=== PATIENT | male | born 1950 | race Caucasian/White ===

== ENCOUNTER → 2019-09-28 12:59 | Outpatient (BNVA) | payer MEDICARE, SELFPAY | PROVIDERS: PCP Family Medicine; Referring Provider Family Medicine; Visit Provider Nurse Practitioner Gerontology | DX: N40.1 Benign prostatic hyperplasia with lower urinary tract symptoms (principal); R39.15 Urgency of urination; R35.1 Nocturia; E11.22 Type 2 diabetes mellitus with diabetic chronic kidney disease; N18.2 Chronic kidney disease, stage 2 (mild); I12.9 Hypertensive chronic kidney disease with stage 1 through stage 4 chronic kidney disease, or unspecified chronic kidney disease | CPT/HCPCS: 51798; 81003; 99204 ==

== ENCOUNTER → 2019-12-30 15:05 | Outpatient (BNVA) | payer MEDICARE, SELFPAY | PROVIDERS: PCP Family Medicine; Referring Provider Family Medicine; Visit Provider Nurse Practitioner Gerontology | DX: N40.1 Benign prostatic hyperplasia with lower urinary tract symptoms (principal); R39.15 Urgency of urination; R35.0 Frequency of micturition | CPT/HCPCS: 99213 ==

== ENCOUNTER → 2021-01-02 14:37 | Outpatient (BNVA) | payer MEDICARE, SELFPAY | PROVIDERS: PCP Family Medicine; Referring Provider Family Medicine; Visit Provider Nurse Practitioner Gerontology | DX: N40.1 Benign prostatic hyperplasia with lower urinary tract symptoms (principal) | CPT/HCPCS: 81003; 99213 ==

== ENCOUNTER → 2022-04-05 14:23 | Outpatient (BNVA) | payer MEDICARE, SELFPAY | PROVIDERS: PCP Family Medicine; Referring Provider Family Medicine; Visit Provider Nurse Practitioner Gerontology | DX: R33.8 Other retention of urine (principal); N40.1 Benign prostatic hyperplasia with lower urinary tract symptoms | CPT/HCPCS: 51798; 99214 ==

== ENCOUNTER → 2023-04-11 10:22 | Outpatient (BNVA) | payer MEDICARE, SELFPAY | PROVIDERS: PCP Family Medicine; Visit Provider Nurse Practitioner Gerontology | DX: N40.1 Benign prostatic hyperplasia with lower urinary tract symptoms (principal); R39.89 Other symptoms and signs involving the genitourinary system | CPT/HCPCS: 51798; 81003; 99213 ==

== ENCOUNTER → 2024-03-11 11:28 | Outpatient (BNVA) | payer MEDICARE, SELFPAY | PROVIDERS: PCP Family Medicine; Visit Provider Nurse Practitioner Gerontology | DX: N40.1 Benign prostatic hyperplasia with lower urinary tract symptoms (principal); N40.0 Benign prostatic hyperplasia without lower urinary tract symptoms; B37.2 Candidiasis of skin and nail | CPT/HCPCS: 99214 ==

== ENCOUNTER → 2024-06-16 09:03 | Outpatient (BNVA) | payer MEDICARE, SELFPAY | PROVIDERS: PCP Family Medicine; Referring Provider Family Medicine; Visit Provider Nurse Practitioner Gerontology | DX: N40.1 Benign prostatic hyperplasia with lower urinary tract symptoms (principal); R33.8 Other retention of urine; R30.0 Dysuria | CPT/HCPCS: 51798; 81003; 99214 ==

== ENCOUNTER 2024-06-16 11:21 | Outpatient (REF) | payer MEDICARE, SELFPAY | END 2024-06-16 11:22 | disposition home or self-care (01) | LOC: LBN 11:21 | PROVIDERS: PCP Family Medicine; Visit Provider Nurse Practitioner Gerontology | DX: N40.1 Benign prostatic hyperplasia with lower urinary tract symptoms (principal) | CPT/HCPCS: 87077; 87086; 87186 ==

== ENCOUNTER → 2024-06-16 14:26 | Outpatient (BNVA) | payer MEDICARE, SELFPAY | PROVIDERS: PCP Family Medicine; Referring Provider Family Medicine; Visit Provider Nurse Practitioner Adult Health | DX: R41.89 Other symptoms and signs involving cognitive functions and awareness (principal) | CPT/HCPCS: 51798; 81003; 99214; 99215 ==

== ENCOUNTER → 2024-06-30 14:07 | Outpatient (BNVA) | payer MEDICARE, SELFPAY | PROVIDERS: PCP Family Medicine; Referring Provider Family Medicine; Visit Provider Urology | DX: R30.0 Dysuria (principal); Z68.41 Body mass index [BMI] 40.0-44.9, adult; N48.83 Acquired buried penis | CPT/HCPCS: 81003; 99214 ==

== ENCOUNTER 2024-06-30 16:04 | Outpatient (REF) | payer MEDICARE, SELFPAY | END 2024-06-30 16:05 | disposition home or self-care (01) | LOC: LBN 16:04 | PROVIDERS: PCP Family Medicine; Visit Provider Urology | DX: R30.0 Dysuria (principal); Z68.41 Body mass index [BMI] 40.0-44.9, adult; N48.83 Acquired buried penis | CPT/HCPCS: 87086 ==

== ENCOUNTER 2024-07-03 11:08 | Outpatient (CLI) | payer MEDICARE, SELFPAY ==
--- NOTE | 2024-07-03 11:00 | RT.EKG_ITS ---
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
== END 2024-07-03 11:09 | disposition home or self-care (01) ==
LOC: DI.CARD 11:11
PROVIDERS: PCP Family Medicine; Referring Provider Family Medicine; Visit Provider Internal Medicine Cardiovascular Disease
DX: R00.0 Tachycardia, unspecified (principal); I21.09 ST elevation (STEMI) myocardial infarction involving other coronary artery of anterior wall; I25.10 Atherosclerotic heart disease of native coronary artery without angina pectoris; R09.89 Other specified symptoms and signs involving the circulatory and respiratory systems; I10 Essential (primary) hypertension
CPT/HCPCS: 93010

== ENCOUNTER → 2024-07-03 11:08 | Outpatient (BNVA) | payer MEDICARE, SELFPAY | PROVIDERS: PCP Family Medicine; Referring Provider Family Medicine; Visit Provider Internal Medicine Cardiovascular Disease | DX: R09.89 Other specified symptoms and signs involving the circulatory and respiratory systems (principal); I25.10 Atherosclerotic heart disease of native coronary artery without angina pectoris; R94.31 Abnormal electrocardiogram [ECG] [EKG]; I10 Essential (primary) hypertension | CPT/HCPCS: 93005; 99214 ==

== ENCOUNTER → 2024-07-20 13:48 | Outpatient (BNVA) | payer MEDICARE, SELFPAY | PROVIDERS: PCP Family Medicine; Referring Provider Family Medicine; Visit Provider Urology | DX: N48.83 Acquired buried penis (principal) | CPT/HCPCS: 99214 ==

== ENCOUNTER → 2024-09-02 10:38 | Outpatient (BNVA) | payer MEDICARE, SELFPAY | PROVIDERS: PCP Family Medicine; Referring Provider Family Medicine; Visit Provider Nurse Practitioner Gerontology | DX: N40.1 Benign prostatic hyperplasia with lower urinary tract symptoms (principal); N48.83 Acquired buried penis | CPT/HCPCS: 99442 ==

== ENCOUNTER 2024-09-14 01:46 | Outpatient (CLI) | payer MEDICARE, SELFPAY ==
--- NOTE | 2024-09-14 13:45 | DI.US_ITS ---
APPROVED REPORT EXAM: Comprehensive 2D, Doppler, and color-flow Echocardiogram Other Information Technically limited study due to body habitus. Conclusion Borderline concentric left ventricular hypertrophy. Ejection fraction is 55 to 60%. Wall motion is normal Normal right ventricular size and function Both atria are normal in size Aortic valve is sclerotic and probably trileaflet. There is no hemodynamically significant aortic st enosis, no aortic regurgitation Mildly dilated ascending aorta 3.53 cm Wall motion Left Ventricle The left ventricle is normal size. The left ventricular systolic function is normal. The left ventric ular ejection fraction is within the normal range. Borderline concentric left ventricular hypertrophy . There is normal LV segmental wall motion. There is no ventricular septal defect visualized. LVEF is 55%. Right Ventricle The right ventricle is normal size. The right ventricular systolic function is normal. Atria The left atrium size is normal. The right atrium size is normal. The interatrial septum is intact wit h no evidence for an atrial septal defect. Aortic Valve The Aortic valve is sclerotic. Aortic valve is probably trileaflet. There is no aortic valvular steno sis. No aortic regurgitation is present. Mitral Valve The mitral valve is normal in structure. No evidence of mitral valve stenosis. Trace mitral regurgita tion. Tricuspid Valve The tricuspid valve is normal in structure. There is no tricuspid valve stenosis. Trace tricuspid reg urgitation. Unable to assess PA pressure. Pulmonic Valve The pulmonary valve is normal in structure. There is no pulmonic valvular stenosis. There is no pulmo gena valvular regurgitation. Great Vessels The aortic root is normal in size. The ascending aorta is mildly dilated. Aortic arch is normal in ca liber. IVC is normal in size and collapses >50% with inspiration. Pericardium There is no pericardial effusion. 2D Dimensions IVSD d PLAX 1.21 cm M: 0.6-1.2 Ao Root d 3.50 cm M: 3.1 - 3.7 LVPW d PLAX 1.17 cm M: 0.6 - 1.2 Ao Asc Diam d 3.53 cm M: 2.6 - 3.4 LVID d PLAX 4.99 cm M: 4.2 - 5.8 LVDs 3.57 cm M: 2.5 - 4.0 LV EF Teichholz 54.8 % FS 28.52 % LV EDV (Teich) 117.7 mL LV ESV (Teich) 53.2 mL Stroke Vol Index (Teich) 25.67 M-Mode TAPSE 1.56 cm (M/F) >1.7 Auto EF LV EDV A4C 154.7 mL LV EDV A2C 139.3 mL LV EDV BP LV ESV A4C 68.8 mL LV ESV A2C 63.2 mL LV ESV BP LVEF(%) A4C 55.5 % LVEF(%) A2C 54.6 % LVEF(%) BP LV SV A4C 85.9 ml LV SV A2C 76.1 ml LV SV BP LV CO A4C 6.0 L/min LV CO A2C 5.2 L/min LV CO BP HR A4C 70.01 BPM HR A2C 67.80 BPM LV EDV Index (BP) LA Volume LA Length A4C 5.5 cm LA Length A2C 4.6 cm LA Area A4C s 14.69 cm2 LA Area A2C s 15.55 cm2 LA Vol A4C A-L 33.24 mL LA Vol A2C A-L 44.56 mL LA Vol Biplane A-L 42.1 mL LA Vol/BSA A4C A-L LA Vol/BSA A2C A-L LA Vol/BSA BP A-L 16.8 mL/m2 LA Vol A4C MOD 32.6 mL LA Vol A2C MOD 40.0 mL LA Vol BP MOD 38.7 mL RA Volume RA Area A4C 7.8 cm2 RA ESV A4C (A-L) 12.3mL RA Vol/BSA A4C A-L RA Length A4C 4.2 cm RA ESV A4C (MOD) 10.7mL LV Diastology MV E' medial 0.076 (>0.07 m/s) MV E Vmax 0.76 (0.4-1.3 m/s) MV E/E' MED 9.95 (<14) MV A Vmax 0.75 (0.4-1.3 m/s) MV E' lateral 0.103 (>0.1 m/s) E/A Ratio 1.0 MV E/E' LAT 7.36 (<14) MV E' Average 0.089 m/s MV E/E'(average) 8.46 Aortic Valve AoV Vmax 1.84 m/s LVOT Vmax 1.05 m/s AoV Peak Grad 13.6 mmHg LVOT Peak Grad 4.4 mmHg AoV Area (Vmax) 1.74 cm2 LVOT VTI 0.231 m AoV VTI 0.390 m LVOT Mean Grad 2.9 mmHg AoV Mean Paul. 1.28 m/s LVOT SV 70.83 mL AoV Mean Grad 7.5 mmHg LVOT Diam s 1.95 cm AoV Area (VTI) 1.82 cm2 AV Regurg Peak Gr. 13.56 mmHg Velocity Ratio 0.57 Mitral Valve MV DT 299 (160-240 msec) MV Vmax TIPS 0.69 m/s MV Mean Grad 0.9 (<2mmHg) MV VTI 0.213 m Pulmonary Valve PV Vmax 1.15 (0.5-1.5 m/s) RVOT Vmax 0.62 m/s PV Peak Grad 5.3 mmHg RVOT Peak Gr. 1.5 mmHg PV Mean Paul 0.70 m/s RVOT VTI 0.143 m PV Mean Grad 2.3 mmHg RVOT Mean Gr. 0.9 mmHg
== END 2024-09-14 02:06 ==
LOC: DI 01:46
PROVIDERS: PCP Family Medicine; Visit Provider Internal Medicine Cardiovascular Disease
DX: I25.10 Atherosclerotic heart disease of native coronary artery without angina pectoris (principal)
CPT/HCPCS: 93306

== ENCOUNTER → 2024-09-15 13:46 | Outpatient (BNVA) | payer MEDICARE, SELFPAY | PROVIDERS: PCP Family Medicine; Referring Provider Family Medicine; Visit Provider Internal Medicine Cardiovascular Disease | DX: I25.10 Atherosclerotic heart disease of native coronary artery without angina pectoris (principal) | CPT/HCPCS: 99213 ==

== ENCOUNTER → 2024-11-10 15:06 | Outpatient (BNVA) | payer MEDICARE, SELFPAY | PROVIDERS: PCP Family Medicine; Referring Provider Family Medicine; Visit Provider Nurse Practitioner Adult Health | DX: G62.9 Polyneuropathy, unspecified (principal); R26.89 Other abnormalities of gait and mobility; S09.90XD Unspecified injury of head, subsequent encounter; W19.XXXD Unspecified fall, subsequent encounter; R41.89 Other symptoms and signs involving cognitive functions and awareness | CPT/HCPCS: 99214 ==

== ENCOUNTER → 2025-03-10 11:16 | Outpatient (BNVA) | payer MEDICARE, SELFPAY | PROVIDERS: PCP Family Medicine; Referring Provider Family Medicine; Visit Provider Nurse Practitioner Gerontology | DX: N40.1 Benign prostatic hyperplasia with lower urinary tract symptoms (principal); N48.83 Acquired buried penis; E11.21 Type 2 diabetes mellitus with diabetic nephropathy | CPT/HCPCS: 99214 ==

== ENCOUNTER 2025-07-07 13:49 | Outpatient (CLI) | payer MEDICARE, SELFPAY ==
[2025-07-07 14:16] LABS: Abs Immature Grans 0.21 10^3/uL (0.0-0.06); HCT 46.5 % (40.0-50.0); HGB 15.8 g/dL (13.5-17.5); Immature Grans % 1.5 %; MCH 28.4 pg (27.0-33.0); MCHC 34.0 % (32.0-36.0); MCV 84 fL (80-95); MPV 10.1 fL (8.0-11.0); Platelet Count 192 10^3/uL (130-400); RBC 5.56 10^6/uL (4.36-5.78); RDW 13.5 % (11.8-14.1); RDW-SD 41.3 fL; WBC 14.11 10^3/uL (4.4-10.8)
[2025-07-07 15:00] LABS: Glucose Negative (Negative)
[2025-07-07 15:10] LABS: RBC 0-2 HPF (0-2)
[2025-07-07 17:14] LABS: ALT 43 U/L (16-63); AST 31 U/L (15-37); Albumin 4.3 g/dL (3.4-5.0); Alkaline Phosphatase 77 U/L (46-116); Anion Gap 10.6 mmol/L (3-11); BUN 35 mg/dL (7-18); Bilirubin, Total 0.7 mg/dL (0.2-1.0); CO2 25.4 mmol/L (21.0-32.0); Calcium 9.6 mg/dL (8.5-10.1); Chloride 97 mmol/L (98-107); Estimated GFR 52.41 (mL/min/1.73m2); Ferritin 75 ng/mL (26-388); Glucose 142 mg/dL (74-106); Potassium 4.9 mmol/L (3.5-5.1); Sodium 133 mmol/L (136-145); Total Protein 8.6 g/dL (6.4-8.2)
[2025-07-08 09:29] LABS: PSA, Diagnostic 7.4 ng/mL (<=6.5)
[2025-07-08 18:45] LABS: Iron 56 ug/dL (65-175); Total Iron Binding Capacity 460 ug/dL (250-450); Transferrin Sat 12 % (20-55)
== END 2025-07-07 13:50 | disposition home or self-care (01) ==
PROVIDERS: Nurse Practitioner Family; Nurse Practitioner Gerontology; PCP Family Medicine; Visit Provider Nurse Practitioner Family
DX: R97.20 Elevated prostate specific antigen [PSA] (principal); A04.72 Enterocolitis due to Clostridium difficile, not specified as recurrent; R35.0 Frequency of micturition
CPT/HCPCS: 36415; 80053; 87077; 81003; 81015; 82728; 83540; 83550; 84153; 85025; 87086; 87186

== ENCOUNTER → 2025-07-28 10:03 | Outpatient (BNVA) | payer MEDICARE, SELFPAY | PROVIDERS: PCP Family Medicine; Referring Provider Family Medicine; Visit Provider Nurse Practitioner Gerontology | DX: R30.0 Dysuria (principal); N40.1 Benign prostatic hyperplasia with lower urinary tract symptoms; N48.83 Acquired buried penis; E11.9 Type 2 diabetes mellitus without complications | CPT/HCPCS: 99215 ==

== ENCOUNTER → 2025-09-06 08:06 | Outpatient (BNVA) | payer MEDICARE, SELFPAY | PROVIDERS: PCP Family Medicine; Referring Provider Family Medicine; Visit Provider Nurse Practitioner Gerontology | DX: N40.1 Benign prostatic hyperplasia with lower urinary tract symptoms (principal); R39.9 Unspecified symptoms and signs involving the genitourinary system | CPT/HCPCS: 99214; 81002; 51798 ==